=== PATIENT | female | born 1935 | race Caucasian/White ===

== ENCOUNTER → 2017-03-04 | Outpatient (CLI) | payer MEDICARE, OTHER ==
[~2017-03-04] MED LIST: AMLO10TA2 PO; ATOR20TA9 PO; BACL-19 PO; CHOL20003 PO; DILT240C61 PO; FLUT9.9S16 NAS; HYDR25TA6 PO; LEVO50TA5 PO; METF500T4 PO; POTA10TA11 PO; TIMO5DRO5 EACHEYE; TRAM50TA2 PO; TRAV5DRO EACHEYE; VALS320T2 PO; VITA1TAB8 PO; WARF5TAB PO; WARF7.5T PO
[2017-03-04 13:00] LABS: BLOOD UREA NITROGEN 10 mg/dL (7-18)
[2017-03-04 13:02] LABS: ASPARTATE AMINO TRANSFERASE 37 U/L (15-37)
== END | disposition home or self-care (01) ==
LOC: CFH 07:16
PROVIDERS: ATTEND Internal Medicine Cardiovascular Disease
DX: I48.2 Chronic atrial fibrillation (principal); I10 Essential (primary) hypertension; I07.1 Rheumatic tricuspid insufficiency; I37.1 Nonrheumatic pulmonary valve insufficiency; I34.0 Nonrheumatic mitral (valve) insufficiency
CPT/HCPCS: 36415; 71020; 80053; 85025; 85610; 85730; 93306

== ENCOUNTER 2017-03-07 09:51 | Day surgery (SDC) | payer MEDICARE, OTHER ==
[~2017-03-07] VITALS: Ht 157.5 cm; Wt 82.2 kg
[2017-03-07 10:57] VITALS: BP 118/72
[2017-03-07] MEDS ORDERED: SODIUM CHLORIDE 0.9% 1,000 ML IV SCH (11:00)
[2017-03-07] MEDS ORDERED: ASPIRIN 325 MG TABLET EC PO ONE (11:00)
[2017-03-07] MEDS ORDERED: TIMO5DRO5 EACHEYE (11:17)
[2017-03-07] MEDS ORDERED: METF500T4 PO (11:17)
[2017-03-07] MEDS ORDERED: ATOR20TA9 PO (11:17)
[2017-03-07] MEDS ORDERED: WARF5TAB PO (11:17)
[2017-03-07] MEDS ORDERED: LEVO50TA5 PO (11:17)
[2017-03-07] MEDS ORDERED: TRAV5DRO EACHEYE (11:17)
[2017-03-07] MEDS ORDERED: VALS320T2 PO (11:17)
[2017-03-07] MEDS ORDERED: WARF7.5T PO (11:17)
[2017-03-07] MEDS ORDERED: DILT240C61 PO (11:17)
[2017-03-07] MEDS ORDERED: CHOL20003 PO (11:17)
[2017-03-07] MEDS ORDERED: VITA1TAB8 PO (11:17)
[2017-03-07] MEDS ORDERED: AMLO10TA2 PO (11:17)
[2017-03-07] MEDS ORDERED: BACL-19 PO (11:18)
[2017-03-07] MEDS ORDERED: POTA10TA11 PO (11:18)
[2017-03-07] MEDS ORDERED: TRAM50TA2 PO (11:18)
[2017-03-07] MEDS ORDERED: HYDR25TA6 PO (11:18)
[2017-03-07] MEDS ORDERED: FLUT9.9S16 NAS (11:18)
[2017-03-07] MEDS ORDERED: FENTANYL PF 100 MCG/2ML ONE (11:42)
[2017-03-07] MEDS ORDERED: BIVALIRUDIN 250 MG ONE (11:42)
[2017-03-07] MEDS ORDERED: HEPARIN 1,000 UNITS/ML, 10ML ONE (11:42)
[2017-03-07] MEDS ORDERED: MIDAZOLAM 1 MG/ML, 5ML ONE (11:42)
[2017-03-07] MEDS ORDERED: TICAGRELOR 90 MG TABLET ONE (11:42)
[2017-03-07] MEDS ORDERED: VERAPAMIL 2.5 MG/ML, 2ML ONE (11:42)
[2017-03-07] MEDS ORDERED: LIDOCAINE 2%, 20ML ONE (11:43)
== END 2017-03-07 15:25 | disposition home or self-care (01) ==
LOC: CACL 09:51
PROVIDERS: ATTEND Internal Medicine Cardiovascular Disease
DX: I25.10 Atherosclerotic heart disease of native coronary artery without angina pectoris (principal); I10 Essential (primary) hypertension; E11.9 Type 2 diabetes mellitus without complications; Z87.891 Personal history of nicotine dependence; I48.2 Chronic atrial fibrillation; E78.2 Mixed hyperlipidemia; I34.0 Nonrheumatic mitral (valve) insufficiency; Z88.2 Allergy status to sulfonamides
CPT/HCPCS: 36415; 85610; 93458; C1894; J1644; J2250; J3010; J3490; Q9967; J0583

== ENCOUNTER → 2018-08-18 | Outpatient (CLI) | payer MEDICARE, OTHER ==
[~2018-08-18] MED LIST changes: -AMLO10TA2 PO; +AMLO10TA6 PO; +CHOL2000 PO; -CHOL20003 PO; +METF500T17 PO; -METF500T4 PO
== END | disposition home or self-care (01) ==
LOC: CFH 08:51
PROVIDERS: ATTEND Internal Medicine Cardiovascular Disease
DX: I35.8 Other nonrheumatic aortic valve disorders (principal); I34.8 Other nonrheumatic mitral valve disorders; I34.0 Nonrheumatic mitral (valve) insufficiency; I10 Essential (primary) hypertension; E78.5 Hyperlipidemia, unspecified; E11.9 Type 2 diabetes mellitus without complications; I48.91 Unspecified atrial fibrillation
CPT/HCPCS: 93306